=== PATIENT | female | born 1965 | race Caucasian/White ===

== ENCOUNTER 2016-06-02 08:44 | Outpatient (CLI) | payer SELFPAY ==
[~2016-06-02] VITALS: Ht 170.2 cm; Wt 38.2 kg
[2016-06-02] VITALS (7 sets, daily range): BP systolic 102–139; BP diastolic 48–76; PULSE 63–68; TEMP 97.7
[~2016-06-02 08:44] MED LIST: ALBUTEROL SULFAT3 M3 PO; ANXIETY MED; ATIVAN1 MG PO; BLOOD PRESSURE; CALCIUM; CELEXA10 MG PO; CLONAZEPAM0.5 MG PO; DEPRESSION MED; DIAMOX SEQUELS500 M1 PO; HCTZ PO; KLONOPIN 0.5MG0.5 MG PO; LASIX 40MG TABL40 MG PO; LEXAPRO 10MG10 MG PO; LEXAPRO10 MG PO; METFORMIN1000 MG PO; METFORMIN500 MG PO; METOCLOPRAMIDE10 MG PO; MOBIC7.5 MG PO; OMEPRAZOLE10 MG PO; POTASSIUM CL 220 MEQ PO; PRIMIDONE50 MG PO; SIMVASTATIN20 MG PO; THYROID 0.23%1 POW PO; TRAZADONE HYDR100 MG PO; WATER PILL
[2016-06-02] MEDS ORDERED: MAXALT10 MG (09:17)
[2016-06-02] MEDS ORDERED: SINEMET 10/101 UDTAB PO (09:17)
[2016-06-02] MEDS ORDERED: TEGRETOL 2200 MG/TA1 PO (09:18)
[2016-06-02] MEDS ORDERED: AMITRIPTYLINE H25 M1 PO (09:18)
[2016-06-02] MEDS ORDERED: VALIUM 2MG T2 MG/TAB PO (09:19)
[2016-06-02] MEDS ORDERED: ZOFRAN8 MG PO (09:19)
[2016-06-02] MEDS ORDERED: CYMBALTA 60MG60 MG PO (09:19)
[2016-06-02] MEDS ORDERED: LEVSIN 0.10.125 MG/T PO (09:20)
[2016-06-02] MEDS ORDERED: LAMICTAL 25MG T25 MG PO (09:20)
[2016-06-02] MEDS ORDERED: FIORICET 325 MG1 TA1 PO (09:21)
[2016-06-02 15:49] LABS: CEREBROSPINAL TUBE #4; CSF APPEARANCE CLEAR; CSF COLOR COLORLESS
[2016-06-04 11:58] LABS: CSF,IGG 3.1 mg/dL (<=8.1)
[2016-06-04 12:13] LABS: ALBUMIN CSF 31.4 mg/dL (<=27.0); CSF IGG/ALBUMIN 0.1 (<=0.21)
[2016-06-04 13:17] LABS: CSF SYNTHESIS RATE 2.04 mg/24 h (<=12); CSF-IGG INDEX 0.56 (<=0.85); IGG/ALBUMIN SERUM 0.18 (<=0.40)
== END 2016-06-02 11:57 | disposition home or self-care (01) ==
LOC: COL.RAD 08:44
PROVIDERS: Psychiatry & Neurology Neurology
DX: R51 Headache (principal)

== ENCOUNTER → 2021-01-16 | Outpatient (CLI) | payer MEDICARE, MEDICAID ==
[~2021-01-16] MED LIST changes: +AMITRIPTYLINE H25 M1 PO; +CYMBALTA 60MG60 MG PO; +FIORICET 325 MG1 TA1 PO; +LAMICTAL 25MG T25 MG PO; +LEVSIN 0.10.125 MG/T PO; +MAXALT10 MG; +SINEMET 10/101 UDTAB PO; +TEGRETOL 2200 MG/TA1 PO; +VALIUM 2MG T2 MG/TAB PO; +ZOFRAN8 MG PO
== END ==
LOC: ZCOL.LAB 16:44
DX: H92.13 Otorrhea, bilateral (principal)

== ENCOUNTER → 2021-07-01 | Outpatient (CLI) | payer MEDICARE, MEDICAID ==
[~2021-07-01] MED LIST changes: +BREO IH; +BRINTELLIX5 PO; +DULCOLAX STOOL100 MG PO; +SPIRIVA RE2.5 MCG/Ac IH; +SYNTHROID0.1 MG/TAB PO; +THEO-24 30300 MG/CAP PO
== END ==
LOC: ZCOL.LAB 10:02
DX: H92.13 Otorrhea, bilateral (principal)

== ENCOUNTER 2021-07-09 08:17 | Outpatient (RCR) | payer MEDICARE, MEDICAID ==
[~2021-07-09] VITALS: Ht 170.2 cm; Wt 111.4 kg
[~2021-07-09 08:17] MED LIST changes: -BREO IH; -BRINTELLIX5 PO; -DULCOLAX STOOL100 MG PO; -SPIRIVA RE2.5 MCG/Ac IH; -SYNTHROID0.1 MG/TAB PO; -THEO-24 30300 MG/CAP PO
[2021-07-09] MEDS ORDERED: SPIRIVA RE2.5 MCG/Ac IH (08:50)
[2021-07-09] MEDS ORDERED: BRINTELLIX5 PO (08:53)
[2021-07-09] MEDS ORDERED: THEO-24 30300 MG/CAP PO (08:54)
[2021-07-09] MEDS ORDERED: DULCOLAX STOOL100 MG PO (08:55)
[2021-07-09] MEDS ORDERED: BREO IH (08:56)
[2021-07-09] MEDS ORDERED: SYNTHROID0.1 MG/TAB PO (08:57)
[2021-07-09 08:58] VITALS: BP 132/84; PULSE 69; TEMP 97.5
[2021-07-09 10:32] LABS: HEMATOCRIT 44.5 % (37.0-47.0); HEMOGLOBIN 13.9 g/dl (12.5-16.0); MEAN CELL VOLUME 95 fl (80.0-100.0); MEAN CORPUSCULAR HEMOGLOBIN 30 pg (27-31); MEAN CORPUSCULAR HGB CONC 31 g/dl (33.0-37.0); MEAN PLATELET VOLUME 9.4 fl (7.4-10.4); PLATELET COUNT 251 K/mm3 (130-400); RED BLOOD COUNT 4.68 M/mm3 (4.10-5.30)
[2021-07-09 10:47] LABS: ALBUMIN 3.3 gm/dL (3.5-5.0); BILIRUBIN,TOTAL 0.5 mg/dL (0.2-1.2); CALCIUM 8.9 mg/dL (8.4-10.2); CREATININE, serum 1.04 mg/dL (0.57-1.11); POTASSIUM 4.3 mmol/L (3.5-4.5); TOTAL PROTEIN 6.6 gm/dL (6.2-8.1)
--- NOTE | 2021-07-09 11:49 | NUR ---
PATIENT WAITED 30 MINUTES AFTER ANTIBIOTICS, DENIED ANY PROBLEMS, DRESSED, ESCORTED OUT. VERIFIED SHE UNDERSTOOD HER INSTRUCTIONS TO GO TO [facility] IN [place], [place] FOR FURTHER DOSES, FIRST BEING THIS EVENING. SHE VERBALIZED UNDERSTANDING.
== END 2021-07-09 11:30 | disposition home or self-care (01) ==
LOC: EUO 08:17
PROVIDERS: Otolaryngology
DX: H70.13 Chronic mastoiditis, bilateral (principal)
CPT/HCPCS: C1751; J0692

== ENCOUNTER → 2021-07-30 | Outpatient (CLI) | payer MEDICARE, MEDICAID ==
[~2021-07-30] MED LIST changes: +BREO IH; +BRINTELLIX5 PO; +DULCOLAX STOOL100 MG PO; +SPIRIVA RE2.5 MCG/Ac IH; +SYNTHROID0.1 MG/TAB PO; +THEO-24 30300 MG/CAP PO
== END ==
LOC: ZCOL.LAB 16:13
DX: H92.13 Otorrhea, bilateral (principal)